=== PATIENT | male | born 1950 | race Caucasian/White ===

== ENCOUNTER 2016-08-06 17:06 | Emergency (ER) | payer OTHER ==
[~2016-08-06] VITALS: Ht 175.3 cm; Wt 129.0 kg
[~2016-08-06 17:06] MED LIST: BRIM0.2S OP; GLUCTES27 XX; KETO2AER TOP; LISI-357 PO; LUMI0.01; METF500 PO; TIMO0.2525 OP
[2016-08-06 17:08] VITALS: BP 148/82; PULSE 83; RESP 20; TEMP 97.8; O2SAT 94
--- NOTE | 2016-08-06 17:17 | PD ---
HPI . left hip pain x 3 days Chief Complaint: Musculoskeletal Complaint Time Seen by Provider: 17:17 Travel History International Travel<30 days: No Contact w/Intl Traveler<30days: No Traveled to known affect area: No History of Present Illness HPI 66-year-old male with history of diabetes and glaucoma here with complaints of left hip pain for 3 days. Patient tells me he was at work and all of a sudden he developed some left hip pain. He rates the pain 13/10 without any radiation. The pain is somewhat localized to the left hip and buttocks area and and very painful. He denies any recent injury. He denies any falls. He is accompanied by his . PFSH Past Medical History Diabetes: Yes Social History Tobacco Use: No Allergies-Medications (Allergen,Severity, Reaction): Coded Allergies: Nitroglycerin (Verified Allergy, Severe, Headache, 08/06/16) Reported Meds & Prescriptions Reported Meds & Active Scripts Active Flexeril (Cyclobenzaprine HCl) 5 Mg Tab 5 Mg PO BID Glucophage 500 mg (Metformin HCl) 500 Mg Tab 1,000 Mg PO BID Lisinopril 5 mg (Lisinopril) 5 Mg Tab 5 Mg PO DAILY Contour Next Blood Glucose Test Strip #25 (Blood Glucose Test Strips) Strp 1 Strip XX DIRECTED Ketoconazole (Ketoconazole (Topical)) 2 % Aer 2 % TOP BIDPRN 30 Days Reported Lumigan (Bimatoprost) 0.01 % Alejandra 1 Drop DAILY IN THE EVENING Brimonidine Tartrate 0.2 % Alejandra 0.2 % OP BID Timolol Maleate 0.25 % Alejandra 0.25 % OP BID both eyes BID Review of Systems General / Constitutional: No: Fever Eyes: No: Visual changes HENT: No: Headaches Cardiovascular: No: Chest Pain or Discomfort Respiratory: No: Shortness of Breath Gastrointestinal: No: Abdominal Pain Genitourinary: No: Dysuria Musculoskeletal: Positive: Pain (left hip) Skin: No Rash Neurologic: No: Weakness Psychiatric: No: Depression Endocrine: No: Polydipsia Hematologic/Lymphatic: No: Easy Bruising Physical Exam Narrative GENERAL: AAO x 3, no acute distress, Well-nourished, well-developed patient. SKIN: Warm and dry. No visible rashes or bruising. HEAD: Normocephalic and atraumatic. EYES: No scleral icterus. No injection or drainage. EOM intact, PERRLA ENT: No nasal drainage noted. Mucous membranes pink. Airway patent. NECK: Supple, trachea midline. No JVD. CARDIOVASCULAR: Regular rate and rhythm without murmurs, gallops, or rubs. RESPIRATORY: Breath sounds equal bilaterally. No accessory muscle use. No rhonchi or rales. GASTROINTESTINAL: Abdomen soft, non-tender, nondistended. EXTREMITIES: No cyanosis or edema. BACK: Nontender without obvious deformity. No CVA tenderness.point tenderness along sciatic nerve +, SLR on left side ++++ no joint laxity, PSYCH: AAO x 3, normal affect. Data Data Last Documented VS Vital Signs Date Time Temp Pulse Resp B/P Pulse Ox O2 Delivery O2 Flow Rate FiO2 08/06/16 17:08 97.8 83 20 148/82 94 Orders Orphenadrine Inj (Norflex Inj) (08/06/16 17:30) MDM Medical Decision Making Medical Screen Exam Complete: Yes Emergency Medical Condition: Yes Medical Record Reviewed: Yes Differential Diagnosis Sciatica, less likely hip fracture, less likely fall Narrative Course 66-year-old male with history of diabetes and glaucoma here with complaints of left hip pain for 3 days. Patient tells me he was at work and all of a sudden he developed some left hip pain. He rates the pain 13/10 without any radiation. The pain is somewhat localized to the left hip and buttocks area and and very painful. He denies any recent injury. He denies any falls. He is accompanied by his . Patient seen and examined. His exam seems to be positive for sciatica. I discussed the disease process with him. I advised him that this could also be coming from his back, and x-rays would not be helpful to identify this. I do not feel a x-ray is warranted as he does not appear to have any acute fracture or injury of the left hip. I discussed issues of chronic back pain and workup including MRI (for PCP workup ) Norflex for instant pain relief. Flexeril at home. Patient was provided with relief prior to leaving. Advise follow-up with his primary care provider. Patient verbalized understanding of instructions, questions were answered, and thanked me for their care. I advised them if their condition worsens, please return to the nearest emergency room for further care. Diagnosis Primary Impression: Sciatica Qualified Code: M54.32 - Sciatica of left side Patient Instructions: General Instructions, Sciatica (ED) Additional Instructions: Please return to emergency department if your symptoms return or worsen. Follow up with your primary care provider. Take medications as prescribed. Flexeril can cause drowsiness. Please do not drive or operate heavy machinery while using this medication. Med/Other Pt SpecificInfo: Prescription(s) given Scripts Cyclobenzaprine (Flexeril)5 Mg Tab5 Mg PO BID #20 TAB Ref 0 Prov:Willie Perkins MD 08/06/16 Disposition: 01 DISCHARGE HOME Condition: Stable Eileen Cruz Aug 06, 2016 17:17
[2016-08-06] MEDS ORDERED: ORPHENADRINE INJ 60 MG/2 ML AMP IM ONE (17:30)
[2016-08-06] MEDS ORDERED: CYCL5TAB PO ×2 (17:32→18:03)
== END 2016-08-06 18:12 | disposition home or self-care (01) ==
LOC: PHEFT 17:06
DX: M54.32 Sciatica, left side (principal); E11.9 Type 2 diabetes mellitus without complications
CPT/HCPCS: 96372; 99283; J2360

== ENCOUNTER 2017-05-19 20:08 | Emergency (ER) | payer OTHER ==
[~2017-05-19] VITALS: Ht 177.8 cm; Wt 130.0 kg
[~2017-05-19 20:08] MED LIST changes: +CYCL5TAB PO
[2017-05-19 20:18] VITALS: BP 176/91; PULSE 102; RESP 16; TEMP 97.8; O2SAT 95
[2017-05-19] MEDS ORDERED: BRIM0.155 LEFT EYE (20:18)
[2017-05-19] MEDS ORDERED: TIMO0.5S30 LEFT EYE (20:18)
[2017-05-19] MEDS ORDERED: INSULIN HUMAN REGULAR 1,000 UNITS/10 ML VIAL IV PUSH ONE (20:30)
[2017-05-19] MEDS ORDERED: SODIUM CHLOR 0.9% 1000 ML INJ 1,000 ML IV ONE (20:30)
[2017-05-19 20:56] LABS: AUTOMATED NEUTROPHIL # 5.2 TH/MM3 (1.8-7.7); BASOPHIL % 0.5 % (0.0-2.0); EOSINOPHIL # 0.1 TH/MM3 (0-0.4); EOSINOPHIL % 0.9 % (0.0-4.0); HEMOGLOBIN 17.8 GM/DL (13.0-17.0); LYMPH % 18.4 % (9.0-44.0); LYMPHOCYTE # 1.4 TH/MM3 (1.0-4.8); MEAN CELL VOLUME 89.4 FL (80.0-100.0); MEAN CORPUSCULAR HGB CONC 33.6 % (32.0-36.0); MONO % 9.3 % (0.0-8.0); MONOCYTE # 0.7 TH/MM3 (0-0.9); NEUT % 70.9 % (16.0-70.0); PLATELET COUNT 181 TH/MM3 (150-450); RED BLOOD COUNT 5.93 MIL/MM3 (4.50-5.90); RED CELL DISTRIBUTION WIDTH 13.8 % (11.6-17.2); WHITE BLOOD COUNT 7.4 TH/MM3 (4.0-11.0)
[2017-05-19 21:07] LABS: BILIRUBIN, URINE NEG (NEG); BLOOD, URINE NEG (NEG); GLUCOSE,URINE 1000 mg/dL (NEG); KETONE, URINE NEG (NEG); NITRITE,URINE NEG (NEG); URINE COLOR LIGHT-YELLOW (YELLW/STRAW); URINE LEUKOCYTE ESTERASE NEG (NEG)
[2017-05-19 21:10] LABS: MUCUS URINE RARE /lpf (OCC)
--- NOTE | 2017-05-19 21:10 | RADRPT ---
EXAM DATE/TIME: 05/19/2017 20:48 [facility] COMPARISON: No previous studies available for comparison. INDICATIONS : Trauma, fall. RADIATION DOSE: 56.35 CTDIvol (mGy) MEDICAL HISTORY : None SURGICAL HISTORY : None. ENCOUNTER: Initial ACUITY: 1 day PAIN SCALE: 5/10 LOCATION: cranial TECHNIQUE: Multiple contiguous axial images were obtained of the head. Using automated exposure control and adj ustment of the mA and/or kV according to patient size, radiation dose was kept as low as reasonably a chievable to obtain optimal diagnostic quality images. DICOM format image data is available electro nically for review and comparison. FINDINGS: CEREBRUM: The ventricles are normal for age. No evidence of midline shift, mass lesion, hemorrhage or acute in farction. No extra-axial fluid collections are seen. POSTERIOR FOSSA: The cerebellum and brainstem are intact. The 4th ventricle is midline. The cerebellopontine angle i s unremarkable. EXTRACRANIAL: The visualized portion of the orbits is intact. SKULL: The calvaria is intact. No evidence of skull fracture. CONCLUSION: 1. No acute intracranial abnormalities. Parag Schmitt MD on May 19, 2017 at 21:06 Board Certified Radiologist. This report was verified electronically.
--- NOTE | 2017-05-19 21:14 | RADRPT ---
EXAM DATE/TIME: 05/19/2017 20:48 [facility] COMPARISON: No previous studies available for comparison. INDICATIONS : Trauma, fall. RADIATION DOSE: 41.75 CTDIvol (mGy) MEDICAL HISTORY : None SURGICAL HISTORY : None. ENCOUNTER: Initial ACUITY: 1 day PAIN SCALE: 5/10 LOCATION: neck TECHNIQUE: Volumetric scanning of the cervical spine was performed. Multiplanar reconstructions in the sagittal, coronal and oblique axial planes were performed. Using automated exposure control and adjustment o f the mA and/or kV according to patient size, radiation dose was kept as low as reasonably achievable to obtain optimal diagnostic quality images. DICOM format image data is available electronically f or review and comparison. FINDINGS: Moderate to severe degenerative disc disease in the cervical spine with broad-based osteophytic ridgi ng at every level between C3 and C7. This results in multilevel encroachment on the lateral recesses. No significant AP canal stenosis. Mild facet arthropathy. No prevertebral soft tissue swelling. CONCLUSION: 1. Moderate to severe degenerative disc disease and facet arthropathy. No acute bony abnormality. Parag Schmitt MD on May 19, 2017 at 21:08 Board Certified Radiologist. This report was verified electronically.
[2017-05-19 21:17] LABS: ALBUMIN 3.1 GM/DL (3.4-5.0); ALKALINE PHOSPHATASE 124 U/L (45-117); ALT (GPT) 17 U/L (12-78); AST (GOT) 23 U/L (15-37); BICARBONATE 27.6 MEQ/L (21.0-32.0); BLOOD UREA NITROGEN 18 MG/DL (7-18); CALCIUM 8.4 MG/DL (8.5-10.1); CHLORIDE 100 MEQ/L (98-107); CREATININE 1.32 MG/DL (0.60-1.30); GLOMERULAR FILTRATION RATE 54 ML/MIN (>89); MAGNESIUM 1.7 MG/DL (1.5-2.5); SODIUM (NA) 136 MEQ/L (136-145); TOTAL BILIRUBIN ADULT 0.4 MG/DL (0.2-1.0); TOTAL PROTEIN 7.1 GM/DL (6.4-8.2); TROPONIN I 0.04 NG/ML (0.02-0.05)
[2017-05-19 21:21] LABS: GLUCOSE,RANDOM 465 MG/DL (74-106)
--- NOTE | 2017-05-19 21:45 | PD ---
HPI Chief Complaint: Fall Time Seen by Provider: 20:24 Travel History International Travel<30 days: No Contact w/Intl Traveler<30days: No Traveled to known affect area: No History of Present Illness HPI 66-year-old male presents to the emergency department for evaluation of head injury. Patient reports just prior to arrival to the emergency department he was at home had been on the phone and he attempted to sit down in his chair but misjudged and fell onto the floor. Patient states that he fell backwards and hit his head. Patient has soreness to the posterior scalp. Patient does not recall having specific loss of consciousness but does have a brief period/gap of time that he is not certain what happened. Patient immediately was able to identify that he did fall and and called 911. Patient felt briefly confused. No vomiting no neck pain no back pain no chest pain no abdominal pain no extremity numbness tingling weakness or pain no pelvic pain. Patient was able to get to his fellow and he is not sure if he stood up and got to the phone on feet falling onto the phone and presents now stating that he has posterior head pain. Patient is blind. Patient states he called his and she was not available to help him so presents now for further evaluation. Patient also has history of diabetes. Patient states because it is difficult for him to monitor his blood sugar he decided to discontinue taking his diabetic medication. Patient does not report any polyuria polydipsia polyphagia or weight change. Patient denies taking any blood thinning agents. Patient rates his head pain is 2/10 intensity. PFSH Past Medical History Narrative Medical Diabetes obesity glaucoma blindness back surgery no tobacco use no alcohol use nursing notes reviewed Diabetes: Yes Patient Takes Glucophage: No Diminished Hearing: No Glaucoma: Yes Tetanus Vaccination: Unknown Past Surgical History Other Surgery: Yes (back surgery, right leg tendon repair.) Social History Alcohol Use: No Tobacco Use: No Substance Use: No Allergies-Medications (Allergen,Severity, Reaction): Coded Allergies: nitroglycerin (Unverified Allergy, Severe, Headache, 05/19/17) Reported Meds & Prescriptions Reported Meds & Active Scripts Active Flexeril (Cyclobenzaprine HCl) 5 Mg Tab 5 Mg PO BID Reported Timolol Opth Drops 0.5 % Soln 1 Drop LEFT EYE BID Brimonidine Opth Drops (Brimonidine Tartrate) 0.15% Soln 1 Drop LEFT EYE TID Review of Systems Except as stated in HPI: all other systems reviewed are Neg Physical Exam Narrative GENERAL: Well-developed well-nourished female in no acute distress no respiratory distress; GCS 15 SKIN: Warm and dry. HEAD: Atraumatic. Normocephalic. EYES: Pupils equal and round. No scleral icterus. No injection or drainage. ENT: No nasal bleeding or discharge. Mucous membranes pink and moist. NECK: Trachea midline. No JVD. Mild paracervical tenderness to palpation no midline bony tenderness or bony step-off CARDIOVASCULAR: Regular rate and rhythm. RESPIRATORY: No accessory muscle use. Clear to auscultation. Breath sounds equal bilaterally. GASTROINTESTINAL: Abdomen soft, non-tender, nondistended. Hepatic and splenic margins not palpable. MUSCULOSKELETAL: Extremities without clubbing, cyanosis, or edema. No obvious deformities. NEUROLOGICAL: Awake and alert. GCS 15. No obvious cranial nerve deficits except vision loss. Motor grossly within normal limits. Five out of 5 muscle strength in the arms and legs. Normal speech. PSYCHIATRIC: Appropriate mood and affect; insight and judgment normal. Data Data Last Documented VS Vital Signs Date Time Temp Pulse Resp B/P (MAP) Pulse Ox O2 Delivery O2 Flow Rate FiO2 05/19/17 20:21 95 Room Air 05/19/17 20:18 97.8 102 16 176/91 (119) Orders Orders Electrocardiogram (05/19/17 20:24) Complete Blood Count With Diff (05/19/17 20:24) Comprehensive Metabolic Panel (05/19/17 20:24) Magnesium (Mg) (05/19/17 20:24) Urinalysis - C+S If Indicated (05/19/17 20:24) Blood Glucose (05/19/17 20:24) Blood Glucose (05/19/17 21:24) Ecg Monitoring (05/19/17 20:24) Iv Access Insert/Monitor (05/19/17 20:24) Oximetry (05/19/17 20:24) NPO (05/19/17 20:24) Troponin I (05/19/17 20:24) Ct Brain W/O Iv Contrast(Rout) (05/19/17 ) Ct Cerv Spine W/O Contrast (05/19/17 ) Insulin Human Regular Inj (Novolin R Inj (05/19/17 20:30) Sodium Chlor 0.9% 1000 Ml Inj (Ns 1000 M (05/19/17 20:30) Labs Laboratory Tests Test 05/19/17 20:20 White Blood Count 7.4 TH/MM3 Red Blood Count 5.93 MIL/MM3 Hemoglobin 17.8 GM/DL Hematocrit 53.0 % Mean Corpuscular Volume 89.4 FL Mean Corpuscular Hemoglobin 30.0 PG Mean Corpuscular Hemoglobin Concent 33.6 % Red Cell Distribution Width 13.8 % Platelet Count 181 TH/MM3 Mean Platelet Volume 9.0 FL Neutrophils (%) (Auto) 70.9 % Lymphocytes (%) (Auto) 18.4 % Monocytes (%) (Auto) 9.3 % Eosinophils (%) (Auto) 0.9 % Basophils (%) (Auto) 0.5 % Neutrophils # (Auto) 5.2 TH/MM3 Lymphocytes # (Auto) 1.4 TH/MM3 Monocytes # (Auto) 0.7 TH/MM3 Eosinophils # (Auto) 0.1 TH/MM3 Basophils # (Auto) 0.0 TH/MM3 CBC Comment DIFF FINAL Differential Comment Urine Color LIGHT-YELLOW Urine Turbidity CLEAR Urine pH 5.0 Urine Specific Tamiment 1.025 Urine Protein NEG mg/dL Urine Glucose (UA) 1000 mg/dL Urine Ketones NEG mg/dL Urine Occult Blood NEG Urine Nitrite NEG Urine Bilirubin NEG Urine Urobilinogen LESS THAN 2.0 MG/DL Urine Leukocyte Esterase NEG Urine Mucus RARE /lpf Microscopic Urinalysis Comment CULT NOT INDICATED Blood Urea Nitrogen 18 MG/DL Creatinine 1.32 MG/DL Random Glucose 465 MG/DL Total Protein 7.1 GM/DL Albumin 3.1 GM/DL Calcium Level 8.4 MG/DL Magnesium Level 1.7 MG/DL Alkaline Phosphatase 124 U/L Aspartate Amino Transf (AST/SGOT) 23 U/L Alanine Aminotransferase (ALT/SGPT) 17 U/L Total Bilirubin 0.4 MG/DL Sodium Level 136 MEQ/L Potassium Level 4.5 MEQ/L Chloride Level 100 MEQ/L Carbon Dioxide Level 27.6 MEQ/L Anion Gap 8 MEQ/L Estimat Glomerular Filtration Rate 54 ML/MIN Troponin I 0.04 NG/ML MDM Medical Decision Making Medical Screen Exam Complete: Yes Emergency Medical Condition: Yes Medical Record Reviewed: Yes Interpretation(s) EKG: patient refused Last Impressions Head CT 05/19/17 0000 Signed Impressions: Service Date/Time: Friday, May 19, 2017 20:48 - CONCLUSION: 1. No acute intracranial abnormalities. Parag Schmitt MD Cervical Spine CT 05/19/17 0000 Signed Impressions: Service Date/Time: Friday, May 19, 2017 20:48 - CONCLUSION: 1. Moderate to severe degenerative disc disease and facet arthropathy. No acute bony abnormality. Parag Schmitt MD CBC & BMP Diagram 05/19/17 20:20 Total Protein 7.1, Albumin 3.1 L, Calcium Level 8.4 L, Magnesium Level 1.7, Alkaline Phosphatase 124 H, Aspartate Amino Transf (AST/SGOT) 23, Alanine Aminotransferase (ALT/SGPT) 17, Total Bilirubin 0.4 Vital Signs Date Time Temp Pulse Resp B/P (MAP) Pulse Ox O2 Delivery O2 Flow Rate FiO2 05/19/17 20:21 95 Room Air 05/19/17 20:18 97.8 102 16 176/91 (119) 95 trop I: 0.04, not elevated Differential Diagnosis Minor closed head injury, ICH, cervical spine sprain strain fracture cord compression uncontrolled diabetes DKA arrhythmia Narrative Course Patient placed on bolt threader continuous pulse oximetry IV access obtained blood sugar 465 patient administered insulin IV along with bolus of normal saline repeat blood sugar ordered CT brain noncontrast reveals no acute intracranial abnormality and no skull fracture CT cervical spine reveals no acute bony abnormality or fracture CBC is automated differential grossly normal range chemistries remarkable for glucose of 465 urinalysis glucosuria Patient presently voicing no concerns or complaints repeat glucose 280 Patient has refused EKG Extensive conversation with patient with spouse at bedside encouraging patient to go EKG in order to complete his evaluation in view of his history of diabetes and recent poor control of blood sugars but patient again adamantly refuses states that he does not want he does not have explained to him that his diabetes being poorly controlled completely members for heart disease heart attack cardiac arrest stroke renal dysfunction as well as limb dysfunction and amputation. Patient states that he is not going to take his diabetic medication and he is not going to have an EKG and he is ready to leave. Patient reports he did come in specifically for his fall and is having no other associated symptoms. From a injury standpoint CT brain noncontrast and cervical spine revealed no acute abnormality patient's blood sugar has been improved/corrected after insulin and fluids patient is otherwise stable for outpatient management discussion regarding education for diabetes conducted and patient states that he understands that he should be on medication has prescription for glipizide has no intention of taking it. Patient will be discharged at this time. Diagnosis Primary Impression: Closed head injury Qualified Codes: S09.90XA - Unspecified injury of head, initial encounter Additional Impressions: Hyperglycemia due to type 2 diabetes mellitus Qualified Codes: E11.65 - Type 2 diabetes mellitus with hyperglycemia Poorly controlled diabetes mellitus Referrals: Primary Care Physician call for appointment Patient Instructions: General Instructions Additional Instructions: Follow head injury precautions 24 hours May take acetaminophen/Tylenol for fever 100.4 days Fahrenheit or greater or for minor pain Recommend following an [place] [employer] diet and monitor blood sugars daily as well as taking prescription glipizide and following up with primary care provider for diabetic management Return to the emergency for free concerns or change in condition Med/Other Pt SpecificInfo: No Change to Meds (take your diabetic medication) Disposition: 01 DISCHARGE HOME Condition: Stable Misty Wong MD May 19, 2017 21:45
== END 2017-05-19 23:09 | disposition home or self-care (01) ==
LOC: NEPC 20:08
DX: S09.90XA Unspecified injury of head, initial encounter (principal); M50.30 Other cervical disc degeneration, unspecified cervical region; E11.65 Type 2 diabetes mellitus with hyperglycemia; E66.9 Obesity, unspecified; W07.XXXA Fall from chair, initial encounter; Z79.899 Other long term (current) drug therapy
CPT/HCPCS: 70450; 72125; 80053; 81001; 83735; 84484; 85025; 96374; 99285; J1815; J7030